=== PATIENT | female | born 1990 | race Caucasian/White ===

== ENCOUNTER → 2021-07-10 | Outpatient (CLI) | payer OTHER ==
[~2021-07-10] MED LIST: DILAUDID2 MG PO; EMGALITY120 MG/1 M SUBQ; HYDROCODON-ACE1 EAC7 PO; LEXAPRO20 MG PO; NOHOMEMEDICATIONS; TOPROL XL50 MG PO; ULTRAM 50MG TAB50 MG PO; ZYRTEC10 M4 PO
== END ==
LOC: M.LAB 14:55
PROVIDERS: ATTEND Podiatrist Foot & Ankle Surgery
DX: Z01.812 Encounter for preprocedural laboratory examination (principal); Z20.822 Contact with and (suspected) exposure to COVID-19

== ENCOUNTER → 2021-07-11 | Day surgery (SDC) | payer OTHER | END | disposition home or self-care (01) | LOC: M.SUR 07:12 | PROVIDERS: ATTEND Podiatrist Foot & Ankle Surgery | DX: S82.841A Displaced bimalleolar fracture of right lower leg, initial encounter for closed fracture (principal); M25.571 Pain in right ankle and joints of right foot; J45.909 Unspecified asthma, uncomplicated; F41.9 Anxiety disorder, unspecified; G43.909 Migraine, unspecified, not intractable, without status migrainosus; Z98.890 Other specified postprocedural states; Z79.899 Other long term (current) drug therapy; Z20.822 Contact with and (suspected) exposure to COVID-19; Z88.0 Allergy status to penicillin; Z88.2 Allergy status to sulfonamides; X58.XXXA Exposure to other specified factors, initial encounter; Y93.89 Activity, other specified; Y92.89 Other specified places as the place of occurrence of the external cause; Y99.8 Other external cause status ==